=== PATIENT | female | born 2000 | race African-American/Black ===

== ENCOUNTER 2022-12-03 16:44 | Emergency (ER) | payer MEDICAID ==
[~2022-12-03] VITALS: Ht 167.6 cm; Wt 80.0 kg
[2022-12-03 16:52] VITALS: BP 122/67
== END 2022-12-03 20:09 | disposition home or self-care (01) ==
LOC: ER 16:44
DX: R05.1 Acute cough (principal); Z20.822 Contact with and (suspected) exposure to COVID-19
CPT/HCPCS: 71045; 87426; 99284; C9803